=== PATIENT | male | born 1935 | race Caucasian/White ===

== ENCOUNTER 2019-04-06 13:10 | Emergency (ER) | payer MEDICARE, OTHER ==
--- NOTE | 2019-04-06 13:28 | EDM.PDOC ---
ED HPI GENERAL MEDICAL PROBLEM - General Stated Complaint: DIZZY Time Seen by Provider: 04/06/19 13:20 Source of Information: Reports: Patient, Family - History of Present Illness INITIAL COMMENTS - FREE TEXT/NARRATIVE: The patient was sent here from his primary care provider in clinic today due to questionable new diagnosis of atrial flutter and the EKG and possible ST elevation on the EKG patient states he has been dizzy ongoing over the last couple weeks and just feeling goofy over the last week no changes today he denies any chest pain shortness of breath or lightheadedness headache vision changes just feels a little dizzy and goofy so that last most of the day patient has no other complaints at this time Duration: Week(s): Quality: Reports: Other (No pain) 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) (None) - Related Data Allergies Allergy/AdvReac Type Severity Reaction Status Date / Time No Known Drug Allergies Allergy Other Verified 07/19/16 12:36 atorvastatin calcium AdvReac Nausea and Verified 07/19/16 12:36 [From Lipitor] Vomiting codeine AdvReac Nausea and Verified 07/19/16 12:36 Vomiting desvenlafaxine succinate AdvReac Nausea and Verified 07/19/16 12:36 [From Pristiq] Vomiting fenofibrate nanocrystallized AdvReac Nausea and Verified 07/19/16 12:36 [From Tricor] Vomiting fenofibrate,micronized AdvReac Nausea and Verified 07/19/16 12:36 [From Tricor] Vomiting fentanyl [From Duragesic] AdvReac Nausea and Verified 07/19/16 12:36 Vomiting niacin AdvReac Nausea and Verified 07/19/16 12:36 Vomiting simvastatin [From Zocor] AdvReac Nausea and Verified 07/19/16 12:36 Vomiting Home Meds: Home Meds Aspirin [Halfprin] 1 tab PO DAILY 08/27/14 [History] Mirtazapine [Remeron] 30 mg PO BEDTIME 08/27/14 [History] Albuterol [Proventil Neb Soln] 2.5 mg NEB QID PRN 05/16/15 [History] Cholecalciferol (Vitamin D3) [Vitamin D3] 1,000 units PO DAILY 04/06/19 [History ] Cyanocobalamin (Vitamin B-12) [B-12] 500 mcg PO DAILY 04/06/19 [History] Meclizine [Antivert] 25 mg PO Q6H PRN 04/06/19 [History] Metoprolol Tartrate [Lopressor] 12.5 mg PO DAILY 04/06/19 [History] Polyethylene Glycol 3350 [MiraLAX] 17 gm PO DAILY PRN 04/06/19 [History] Rosuvastatin [Crestor] 5 mg PO DAILY 04/06/19 [History] Past Medical History Cardiovascular History: Reports: Bypass, High Cholesterol, Hypertension, [place] Respiratory History: Reports: COPD - Past Surgical History Neurological Surgical History: Reports: Other (See Below) ED ROS GENERAL - Review of Systems Review Of Systems: See Below Constitutional: Denies: Fever, Chills, Malaise, Weakness, Fatigue, Diaphoresis, Weight Loss HEENT: Reports: No Symptoms Respiratory: Reports: No Symptoms. Denies: Shortness of Breath Cardiovascular: Denies: Chest Pain, Blood Pressure Problem, Dyspnea on Exertion , Edema, Lightheadedness, Syncope Endocrine: Reports: No Symptoms GI/Abdominal: Reports: No Symptoms : Reports: No Symptoms Musculoskeletal: Reports: No Symptoms Skin: Reports: No Symptoms Neurological: Reports: Dizziness. Denies: Confusion, Headache, Numbness, Paresthesia, Syncope, Tingling, Trouble Speaking, Difficulty Walking, Weakness Psychiatric: Denies: Confusion Hematologic/Lymphatic: Reports: No Symptoms Immunologic: Reports: No Symptoms ED EXAM, GENERAL - Physical Exam Exam: See Below Exam Limited By: No Limitations General Appearance: Alert, WD/WN, No Apparent Distress Eye Exam: Bilateral Eye: Other (Pupils equal round reactive light accommodation EOMI is intact) Ears: Normal External Exam, Normal Canal, Normal TMs Nose: Normal Inspection, Normal Mucosa Throat/Mouth: Normal Inspection, Normal Lips, Normal Teeth, Normal Gums, Normal Oropharynx, Normal Voice, No Airway Compromise Neck: Normal Inspection, Supple, Non-Tender, Full Range of Motion. No: Carotid Bruit Respiratory/Chest: No Respiratory Distress, Lungs Clear, Other (Very mild faint end expiratory wheezing bilateral upper lobes) Cardiovascular: Normal Peripheral Pulses, No Edema, No JVD, No Murmur, No Rub. No: Regular Rate, Rhythm GI/Abdominal: Normal Bowel Sounds, Soft, Non-Tender, No Organomegaly, No Distention Extremities: Normal Inspection, Normal Range of Motion, Non-Tender Neurological: Alert, Normal Cognition Skin Exam: Warm, Dry, Intact, Normal Color, No Rash (Patient is neurologically intact follows all commands and answers all questions appropriately is no acute distress) EKG INTERPRETATION Rhythm: A-Flutter Course - Vital Signs Text/Narrative:: Vital signs were noted in all normal EKG shows atrial flutter no ST elevation or depression or reciprocal changes could be appreciated at this time Labs ordered CBC BMP troponin EKG chest x-ray patient is currently on metoprolol daily Spoke with cardiology at [facility] Dr. Cabello patient does not need to be transferred with normal troponin and no chest pain have the patient increase his Toprol to 25 mg daily follow up with his primary care provider and cardiology Last Recorded V/S: Last Vital Signs Temp 36.7 C 04/06/19 13:30 Pulse 124 H 04/06/19 13:30 Resp 18 04/06/19 13:30 BP 150/95 H 04/06/19 13:30 Pulse Ox 97 04/06/19 13:30 - Orders/Labs/Meds Orders: Active Orders 24 hr Category Date Time Status EKG Documentation Completion [RC] STAT Care 04/06/19 13:21 Active Labs: Laboratory Tests 04/06/19 04/06/19 Range/Units 13:20 13:20 WBC 7.5 (4.0-10.0) x10^3/uL RBC 4.38 L (4.5-6.0) x10^6/uL Hgb 13.0 L D (14.0-18.0) g/dL Hct 38.3 L (40.0-52.0) % MCV 87.4 (78.0-93.0) fL MCH 29.7 (26.0-32.0) pg MCHC 33.9 (32.0-36.0) g/dL RDW Coeff of Sammie 13.1 (10.0-15.0) % Plt Count 252 (130-400) x10^3/uL Sodium 138 (136-145) mmol/L Potassium 4.6 (3.5-5.1) mmol/L Chloride 102 (98-107) mmol/L Carbon Dioxide 25 (21-32) mmol/L Anion Gap 15.6 (10-20) mmol/L BUN 18 (7-18) mg/dL Creatinine 1.4 H (0.70-1.30) mg/dL Est Cr Clr Drug Dosing 30.24 mL/min Estimated GFR (MDRD) 48 Glucose 97 (74-106) mg/dL Calcium 8.8 (8.5-10.1) mg/dL Troponin I < 0.017 (<=0.056) ng/mL Departure - Departure Time of Disposition: 14:00 Disposition: Home, Self-Care 01 Condition: Good Clinical Impression: Flutter-fibrillation, Dizziness - Discharge Information - Problem List & Annotations (1) Atrial flutter SNOMED Code(s): 7090229 Code(s): I48.92 - UNSPECIFIED ATRIAL FLUTTER Status: Acute (2) Dizziness SNOMED Code(s): 564271435, 398183281 Code(s): R42 - DIZZINESS AND GIDDINESS Status: Acute - My Orders Last 24 Hours: My Active Orders 04/06/19 13:21 EKG Documentation Completion [RC] STAT - Assessment/Plan Last 24 Hours: My Active Orders 04/06/19 13:21 EKG Documentation Completion [RC] STAT Plan: Patient will follow up outpatient cardiology ,call this week for an appointment and to follow with his primary care provider will increase his Toprol 25 mg Patient and were given instructions and signs and symptoms and needs to return to the emergency room with verbal understanding Spoke with patient's primary care provider states decision and treatment sounds great he can call in appointment for and she will seem outpatient clinic
[2019-04-06 13:57] LABS: CHLORIDE,CL 102 mmol/L (98-107); SODIUM,NA 138 mmol/L (136-145)
[2019-04-06 13:58] LABS: ANION GAP 15.6 mmol/L (10-20)
--- NOTE | 2019-04-06 14:00 | CR ---
[id number] RAD/RAD Chest PA or AP 1V EXAM: RAD Chest PA or AP 1V INDICATION: DIZZY. COMPARISON: CT chest with contrast 07/24/2018. DISCUSSION: Median sternotomy wires. Cardiomediastinal silhouette is normal in size and contour. Hazy opacification overlying the right hemithorax is nonspecific. Trace bilateral pleural effusions. No pneumothorax. IMPRESSION: Hazy opacification overlying the right hemithorax is nonspecific. This could be infectious/inflammatory. If continued clinical concern, CT of the chest without contrast could be considered. Caio Nava DO 04/06/19 [id number] Thank you for allowing us to participate in the care of your patient.
[2019-04-06 15:37] VITALS: BP 136/95
== END 2019-04-06 14:55 | disposition home or self-care (01) ==
LOC: VM.ED 13:10
DX: I49.8 Other specified cardiac arrhythmias (principal); I10 Essential (primary) hypertension; E78.00 Pure hypercholesterolemia, unspecified; I25.2 Old myocardial infarction; J44.9 Chronic obstructive pulmonary disease, unspecified; Z79.82 Long term (current) use of aspirin; Z79.899 Other long term (current) drug therapy; Z88.8 Allergy status to other drugs, medicaments and biological substances; Z88.5 Allergy status to narcotic agent
CPT/HCPCS: 71045; 80048; 84484; 85027; 93005; 93010; 99284-GF; 99285-25

== ENCOUNTER 2019-08-04 03:48 | Emergency (ER) | payer MEDICARE, OTHER ==
[2019-08-04] MEDS ORDERED: Dicyclomine 10 MG Cap PO ONE (04:12)
[2019-08-04 04:56] VITALS: BP 151/100; PULSE 100
--- NOTE | 2019-08-04 05:18 | EDM.PDOC ---
ED HPI GENERAL MEDICAL PROBLEM - General Chief Complaint: Abdominal Pain Stated Complaint: Abdominal pain Time Seen by Provider: 08/04/19 05:00 Source of Information: Reports: Patient History Limitations: Reports: No Limitations - History of Present Illness INITIAL COMMENTS - FREE TEXT/NARRATIVE: 84-year-old white male presents with ongoing generalized abdominal plain 2 days constant that he rates it 9 out of 10 crampy sharp pain that just came on. He denies any other complaints at this time states he has been eating fine and drinking fine no bowel movement in 2-3 days no nausea or vomiting no blood in his stool no back pain Duration: Day(s): Location: Reports: Abdomen Quality: Reports: Pressure, Sharp, Stabbing Associated Symptoms: Reports: No Other Symptoms. Denies: Chest Pain, Cough, Diaphoresis, Headaches, Loss of Appetite, Malaise, Nausea/Vomiting, Shortness of Breath, Weakness whole abdomen Pain Score (Numeric/FACES): 5 - Related Data Allergies Allergy/AdvReac Type Severity Reaction Status Date / Time No Known Drug Allergies Allergy Other Verified 08/04/19 04:12 atorvastatin calcium AdvReac Nausea and Verified 08/04/19 04:12 [From Lipitor] Vomiting codeine AdvReac Nausea and Verified 08/04/19 04:12 Vomiting desvenlafaxine succinate AdvReac Nausea and Verified 08/04/19 04:12 [From Pristiq] Vomiting fenofibrate nanocrystallized AdvReac Nausea and Verified 08/04/19 04:12 [From Tricor] Vomiting fenofibrate,micronized AdvReac Nausea and Verified 08/04/19 04:12 [From Tricor] Vomiting fentanyl [From Duragesic] AdvReac Nausea and Verified 08/04/19 04:12 Vomiting niacin AdvReac Nausea and Verified 08/04/19 04:12 Vomiting simvastatin [From Zocor] AdvReac Nausea and Verified 08/04/19 04:12 Vomiting Home Meds: Home Meds Aspirin [Halfprin] 1 tab PO DAILY 08/27/14 [History] Mirtazapine [Remeron] 30 mg PO BEDTIME 08/27/14 [History] Albuterol [Proventil Neb Soln] 2.5 mg NEB QID PRN 05/16/15 [History] Cholecalciferol (Vitamin D3) [Vitamin D3] 1,000 units PO DAILY 04/06/19 [History ] Cyanocobalamin (Vitamin B-12) [B-12] 500 mcg PO DAILY 04/06/19 [History] Meclizine [Antivert] 25 mg PO Q6H PRN 04/06/19 [History] Metoprolol Tartrate [Lopressor] 12.5 mg PO DAILY 04/06/19 [History] Polyethylene Glycol 3350 [MiraLAX] 17 gm PO DAILY PRN 04/06/19 [History] Rosuvastatin [Crestor] 5 mg PO DAILY 04/06/19 [History] Past Medical History Cardiovascular History: Reports: Bypass, High Cholesterol, Hypertension, [place] Respiratory History: Reports: COPD Gastrointestinal History: Reports: GERD Musculoskeletal History: Reports: Arthritis - Past Surgical History Neurological Surgical History: Reports: Other (See Below) ED ROS GENERAL - Review of Systems Review Of Systems: See Below Constitutional: Reports: No Symptoms. Denies: Fever, Chills, Malaise, Weakness , Fatigue, Diaphoresis, Decreased Appetite, Weight Loss, Weight Gain HEENT: Reports: No Symptoms Respiratory: Reports: No Symptoms Cardiovascular: Denies: Chest Pain, Blood Pressure Problem, Dyspnea on Exertion , Lightheadedness, Orthopnea, Palpitations, Syncope Endocrine: Reports: No Symptoms GI/Abdominal: Reports: Abdominal Pain. Denies: Anorexia, Black Stool, Bloody Stool, Constipation, Diarrhea, Decreased Appetite, Difficulty Swallowing, Distension, Flatus, Hematemesis, Hematochezia, Melena, Nausea, Stool Incontinence, Vomiting : Reports: No Symptoms Musculoskeletal: Reports: No Symptoms. Denies: Back Pain Skin: Reports: No Symptoms Neurological: Reports: No Symptoms Psychiatric: Reports: No Symptoms Hematologic/Lymphatic: Reports: No Symptoms Immunologic: Reports: No Symptoms ED EXAM, GI/ABD - Physical Exam Exam: See Below Exam Limited By: No Limitations General Appearance: Alert, WD/WN, No Apparent Distress Eyes: Bilateral: Normal Appearance Ears: Normal Canal, Hearing Grossly Normal Nose: Normal Inspection, Normal Mucosa Throat/Mouth: Normal Inspection, Normal Lips, Normal Teeth, Normal Gums, Normal Oropharynx, Normal Voice, No Airway Compromise, Other (Moist mucous membranes. He has his dentures in ) Neck: Normal Inspection, Supple, Non-Tender, Full Range of Motion Respiratory/Chest: No Respiratory Distress, Lungs Clear, Normal Breath Sounds, No Accessory Muscle Use, Chest Non-Tender Cardiovascular: Normal Peripheral Pulses, Regular Rate, Rhythm, No Edema, No Gallop, No JVD (At time of exam patient states he has no pain 0 out of 10 feels much better after Bentyl), No Murmur, No Rub GI/Abdominal Exam: Normal Bowel Sounds, Soft, Non-Tender, No Organomegaly, No Distention, No Abnormal Bruit, No Mass, Pelvis Stable, Other (Abdomen is soft and nontender no HSM no peritoneal signs. Negative heel slap negative pelvic rock negative CVA tenderness). No: Guarding, Rigid, Rebound, Tender (Abdomen soft and nontender negative HSM no guarding or rebound no iliopsoas and no heel slap no pelvic rock), Abnormal Bowel Sounds Back Exam: Normal Inspection, Full Range of Motion Extremities: Normal Inspection, Normal Range of Motion, Non-Tender, No Pedal Edema, Normal Capillary Refill Neurological: Alert, Oriented, CN II-XII Intact, Normal Cognition, No Motor/ Sensory Deficits Psychiatric: Normal Affect, Normal Mood Skin Exam: Warm, Dry, Intact, Normal Color, No Rash Lymphatic: No Adenopathy Course - Vital Signs Text/Narrative:: She was given 10 mg of Bentyl by mouth which took his pain level from a 9 to a 0 flatplate x-ray was ordered secondary to patient having history of bowel movement 2 days Flatplate and upright positive for constipation moderate amount moderate diffuse gaseous dilatation of the remaining bowels probable ileus patient has no signs or symptoms of ileus he denies any nausea or vomiting at this time. Patient instructed on constipation treatment and need for follow-up or return to emergency room if anything gets worse was given instructions over the phone for treatment and need to return to emergency room in follow primary care provider. She will be given this again when she arrived to pick him up after daylight Patient recheck negative pain willing to go home take stool softeners/laxatives follow-up primary care provider Last Recorded V/S: Last Vital Signs Temp 36.8 C 08/04/19 03:50 Pulse 100 08/04/19 04:53 Resp 16 08/04/19 04:53 BP 151/100 H 08/04/19 04:53 Pulse Ox 96 08/04/19 03:50 - Orders/Labs/Meds Orders: Active Orders 24 hr Category Date Time Status Abdomen 2V AP Flat Upright [CR] Stat Exams 08/04/19 04:50 Taken Meds: Medications Discontinued Medications Generic Name Dose Route Start Last Admin Trade Name Pedro PRN Reason Stop Dose Admin Dicyclomine HCl 10 mg 08/04/19 04:12 08/04/19 04:16 Bentyl PO 08/04/19 04:13 10 mg ONETIME ONE Administration Departure - Departure Time of Disposition: 05:35 Disposition: Home, Self-Care 01 Condition: Good Clinical Impression: Abdominal pain, Constipation - Discharge Information *PRESCRIPTION DRUG MONITORING PROGRAM REVIEWED*: No *COPY OF PRESCRIPTION DRUG MONITORING REPORT IN PATIENT BENNY: No Instructions: Constipation, Adult, [id number], Abdominal Pain, Adult, Easy-to -Read Referrals: PCP,Unobtain [Primary Care Provider] - Additional Instructions: Take Bentyl prescription 1 tablet every 8 hours as needed for pain #11 Drinking plenty of water 4-6-8 glasses a day Take stool softeners Colace 100 mg 1 every 8 hours daily Use MiraLAX daily as prescribed Hold the milk of Magnesia for 3 days For treatment of constipation take 2 stool softeners this morning upon arrival at home and drink 2 glasses of water 1 mixed with MiraLAX as directed then Use magnesium citrate drink one bottle followed by one bottle of water and then use one enema approximately 30-45 minutes after If no bowel movement in 8 hours repeat the above one glass water mixed with MiraLAX with half a bottle of mag citrate followed by 1 bottled water and one enema approximately 30-45 minutes after Follow-up with primary care provider in the next 24 hours or return to emergency room if anything gets worse or changes - Problem List & Annotations (1) Abdominal pain SNOMED Code(s): 14137543 Code(s): R10.9 - UNSPECIFIED ABDOMINAL PAIN Status: Acute Current Visit: Yes (2) Constipation SNOMED Code(s): 85357759 Code(s): K59.00 - CONSTIPATION, UNSPECIFIED Status: Acute Current Visit: Yes - My Orders Last 24 Hours: My Active Orders 08/04/19 04:50 Abdomen 2V AP Flat Upright [CR] Stat - Assessment/Plan Last 24 Hours: My Active Orders 08/04/19 04:50 Abdomen 2V AP Flat Upright [CR] Stat
--- NOTE | 2019-08-04 07:58 | CR ---
[id number] RAD/RAD Abd Flat and Upright 2V EXAM: RAD Abd Flat and Upright 2V INDICATION: ABDOMINAL PAIN. COMPARISON: None. DISCUSSION: Diffuse gaseous distention of both small bowel and colon loops throughout the abdomen/pelvis. Bowel gas pattern is nonspecific, without definitive evidence of obstruction. Ileus is possible. Moderate colonic stool burden. IMPRESSION: As above. Manuel Palumbo MD 08/04/19 0755 Thank you for allowing us to participate in the care of your patient.
== END 2019-08-04 08:05 | disposition home or self-care (01) ==
LOC: VM.ED 03:48
DX: K59.00 Constipation, unspecified (principal); I10 Essential (primary) hypertension; I25.2 Old myocardial infarction; E78.00 Pure hypercholesterolemia, unspecified; M19.90 Unspecified osteoarthritis, unspecified site; Z79.82 Long term (current) use of aspirin; Z79.899 Other long term (current) drug therapy; Z88.8 Allergy status to other drugs, medicaments and biological substances; Z88.5 Allergy status to narcotic agent
CPT/HCPCS: 74019; 99284; A9270

== ENCOUNTER 2019-12-07 15:12 | Inpatient (IN) | payer MEDICARE, OTHER ==
[2019-12-07] MEDS ORDERED: Sodium Chloride 0.9% 10 ML Syringe FLUSH PRN (15:28)
[2019-12-07] MEDS ORDERED: Sodium Chloride 0.9% 1,000 ML IV SCH (15:45)
--- NOTE | 2019-12-07 16:01 | EDM.PDOC ---
ED HPI GENERAL MEDICAL PROBLEM - General Chief Complaint: General Time Seen by Provider: 12/07/19 15:12 Source of Information: Reports: Patient, EMS History Limitations: Reports: No Limitations - History of Present Illness INITIAL COMMENTS - FREE TEXT/NARRATIVE: Pt. presents to ER via EMS. Pt. lives at home alone. His from cancer on . He does all of his own cooking, cleaning, and handles his own medical affairs. He has a home health agency that helps him bathe, but according to his doctor, he is in charge of a majority of his ADLs. He refuses placement in a intermediate, and is unable to afford assisted living. Pt. has a son that lives in the [place] area and has since gone home after the . Pt. has a longstanding history of weight loss, cachexia, increased weakness and general debility. Pt. complains of diffuse abdominal discomfort but states that this has been chronic. He complains of chest pain and shortness of breath. His primary complaint is weakness and fatigue today. He Denies any fever or chills. He states that he has a cough, but feels that this is chronic as well. Denies any skin rashes. No unilateral weakness or paresthesia in his extremities or face. Onset: Today Onset Date: 12/07/19 Duration: Chronic, Constant, Getting Worse Location: Reports: Chest, Abdomen, Generalized Quality: Reports: Ache Severity: Mild Associated Symptoms: Reports: Chest Pain, Malaise, Shortness of Breath, Weakness - Related Data Allergies Allergy/AdvReac Type Severity Reaction Status Date / Time atorvastatin calcium AdvReac Nausea and Verified 12/07/19 15:39 [From Lipitor] Vomiting codeine AdvReac Nausea and Verified 12/07/19 15:39 Vomiting desvenlafaxine succinate AdvReac Nausea and Verified 12/07/19 15:39 [From Pristiq] Vomiting fenofibrate nanocrystallized AdvReac Nausea and Verified 12/07/19 15:39 [From Tricor] Vomiting fenofibrate,micronized AdvReac Nausea and Verified 12/07/19 15:39 [From Tricor] Vomiting fentanyl [From Duragesic] AdvReac Nausea and Verified 12/07/19 15:39 Vomiting niacin AdvReac Nausea and Verified 12/07/19 15:39 Vomiting simvastatin [From Zocor] AdvReac Nausea and Verified 12/07/19 15:39 Vomiting Home Meds: Home Meds Aspirin [Halfprin] 1 tab PO DAILY 08/27/14 [History] Mirtazapine [Remeron] 30 mg PO BEDTIME 08/27/14 [History] Albuterol [Proventil Neb Soln] 2.5 mg NEB QID PRN 05/16/15 [History] Cholecalciferol (Vitamin D3) [Vitamin D3] 1,000 units PO DAILY 04/06/19 [History ] Cyanocobalamin (Vitamin B-12) [B-12] 500 mcg PO DAILY 04/06/19 [History] Meclizine [Antivert] 12.5 mg PO BID 04/06/19 [History] Polyethylene Glycol 3350 [MiraLAX] 17 gm PO BID 04/06/19 [History] Rosuvastatin [Crestor] 5 mg PO BEDTIME 04/06/19 [History] Dicyclomine [Bentyl] 10 mg PO TID PRN 12/07/19 [History] Docusate Sodium [Colace] 100 mg PO DAILY PRN 12/07/19 [History] Magnesium Hydroxide [Milk of Magnesia] 30 ml PO BID 12/07/19 [History] Megestrol [Megace] 40 mg PO DAILY 12/07/19 [History] Metoprolol Succinate [Toprol XL] 37.5 mg PO DAILY 12/07/19 [History] Past Medical History HEENT History: Reports: Hard of Hearing Cardiovascular History: Reports: Bypass, CAD, Heart Failure, High Cholesterol, Hypertension, [place] Respiratory History: Reports: COPD Other Respiratory History: nocturnal hypoxia. multiple lung nodules Gastrointestinal History: Reports: Chronic Constipation, GERD Musculoskeletal History: Reports: Arthritis, RA Psychiatric History: Reports: Anxiety, Depression - Past Surgical History Neurological Surgical History: Reports: Other (See Below) Social & Family History - Tobacco Use Smoking Status *Q: Former Smoker Used Tobacco, but Quit: Yes Month/Year Tobacco Last Used: 03/09 ED ROS GENERAL - Review of Systems Review Of Systems: See Below Constitutional: Reports: Malaise, Weakness, Fatigue, Decreased Appetite, Weight Loss HEENT: Reports: Other (poorly fitting dentures) Respiratory: Reports: No Symptoms Cardiovascular: Reports: No Symptoms Endocrine: Reports: No Symptoms GI/Abdominal: Reports: Abdominal Pain. Denies: Black Stool, Bloody Stool, Hematemesis, Hematochezia, Melena : Reports: No Symptoms Musculoskeletal: Reports: No Symptoms. Denies: Arm Pain, Leg Pain, Joint Pain, Muscle Pain Skin: Reports: Pallor, Dryness Neurological: Reports: No Symptoms Psychiatric: Reports: Mood Lability Hematologic/Lymphatic: Reports: No Symptoms Immunologic: Reports: No Symptoms ED EXAM, GENERAL - Physical Exam Exam: See Below Exam Limited By: No Limitations General Appearance: Mild Distress, Cachetic Eye Exam: Bilateral Eye: EOMI, Normal Fundi, Normal Inspection, PERRL Nose: Normal Inspection, No Blood Throat/Mouth: Normal Inspection, Normal Lips, Normal Oropharynx, No Airway Compromise, Other (poorly fitting dentures) Head: Atraumatic, Normocephalic Neck: Supple, Non-Tender, Limited Range of Motion Respiratory/Chest: No Respiratory Distress, Lungs Clear, Decreased Breath Sounds , Pleural Rub (L lung base) Cardiovascular: Normal Peripheral Pulses, No Edema, No JVD, No Rub, Irregularly Irregular Peripheral Pulses: 4+: Femoral (L) GI/Abdominal: Normal Bowel Sounds, Soft, No Organomegaly, No Distention, No Mass , Pelvis Stable, Tender (Male) Exam: Deferred Rectal (Males) Exam: Deferred Back Exam: Normal Inspection, Decreased Range of Motion Extremities: Normal Inspection, Non-Tender, No Pedal Edema, Normal Capillary Refill, Limited Range of Motion, Other (arthritic appearing hands and feet) Neurological: Alert, CN II-XII Intact, Normal Cognition, Normal Reflexes, No Motor/Sensory Deficits, Confused Psychiatric: Normal Affect, Normal Mood Skin Exam: Warm, Dry, Intact, No Rash, Pallor Course - Vital Signs Last Recorded V/S: Last Vital Signs Temp 36.3 C 12/07/19 18:32 Pulse 89 12/07/19 18:32 Resp 18 12/07/19 18:32 BP 153/53 H 12/07/19 18:32 Pulse Ox 95 12/07/19 18:32 - Orders/Labs/Meds Orders: Active Orders 24 hr Category Date Time Status Patient Status [ADT] Routine ADT 12/07/19 18:40 Ordered EKG Documentation Completion [RC] STAT Care 12/07/19 15:25 Active Piperacillin/Tazobactam [Zosyn] 4.5 gm Med 12/07/19 18:40 Ordered Sodium Chloride 0.9% [Normal Saline] 100 ml IV STAT Sodium Chloride 0.9% [Normal Saline] 1,000 ml Med 12/07/19 15:45 Active IV ASDIRECTED Sodium Chloride 0.9% [Saline Flush] Med 12/07/19 15:28 Active 10 ml FLUSH ASDIRECTED PRN Peripheral IV Insertion Adult [OM.PC] Routine Oth 12/07/19 15:27 Ordered Medication Orders Sodium Chloride (Normal Saline) 1,000 mls @ 200 mls/hr IV ASDIRECTED LEE Last Admin: 12/07/19 15:45 Dose: 200 mls/hr Piperacillin Sod/Tazobactam (Sod 4.5 gm/ Sodium Chloride) 100 mls @ 200 mls/hr IV STAT ONE Stop: 12/07/19 19:09 Sodium Chloride (Saline Flush) 10 ml FLUSH ASDIRECTED PRN PRN Reason: Keep Vein Open Labs: Laboratory Tests 12/07/19 12/07/19 12/07/19 Range/Units 15:50 15:50 15:50 WBC 12.3 H (4.0-10.0) x10^3/uL RBC 4.23 L (4.5-6.0) x10^6/uL Hgb 12.4 L (14.0-18.0) g/dL Hct 37.8 L (40.0-52.0) % MCV 89.4 (78.0-93.0) fL MCH 29.3 (26.0-32.0) pg MCHC 32.8 (32.0-36.0) g/dL RDW Coeff of Sammie 14.4 (10.0-15.0) % Plt Count 196 (130-400) x10^3/uL Neut % (Auto) 75.3 (50.0-80.0) % Lymph % (Auto) 14.8 L (25.0-50.0) % Jenkins % (Auto) 9.1 (2.0-11.0) % Eos % (Auto) 0.6 (0.0-4.0) % Baso % (Auto) 0.2 (0.2-1.2) % PT 12.5 (10.0-12.8) SEC INR 1.1 L (2.0-3.5) Sodium 143 (136-145) mmol/L Potassium 4.3 (3.5-5.1) mmol/L Chloride 106 (98-107) mmol/L Carbon Dioxide 23 (21-32) mmol/L Anion Gap 18.3 (10-20) mmol/L BUN 21 H (7-18) mg/dL Creatinine 1.4 H (0.70-1.30) mg/dL Est Cr Clr Drug Dosing TNP Estimated GFR (MDRD) 48 Glucose 123 H (74-106) mg/dL Lactic Acid (0.4-2.0) mmol/L Calcium 9.6 (8.5-10.1) mg/dL Corrected Calcium 10.24 H (8.5-10.1) mg/dL Phosphorus 3.1 (2.6-4.7) mg/dL Magnesium 2.1 (1.8-2.4) mg/dL Total Bilirubin 0.6 (0.2-1.0) mg/dL AST 14 L (15-37) U/L ALT 11 L (16-63) U/L Alkaline Phosphatase 82 (46-116) U/L Troponin I < 0.017 (<=0.056) ng/mL C-Reactive Protein 4.1 H (<=0.9) mg/dL NT-Pro-B Natriuret Pep 2032 H (<=450) pg/mL Total Protein 8.2 (6.4-8.2) g/dL Albumin 3.2 L (3.4-5.0) g/dL Globulin 5.0 Albumin/Globulin Ratio 0.64 TSH, Ultra Sensitive 4.649 H (0.358-3.74) uIU/mL Urine Color (YELLOW) Urine Appearance (CLEAR) Urine pH (5.0-8.0) Ur Specific [place] Urine Protein (NEGATIVE) mg/dL Urine Glucose (UA) (NEGATIVE) mg/dL Urine Ketones (NEGATIVE) mg/dL Urine Occult Blood (NEGATIVE) Urine Nitrite (NEGATIVE) Urine Bilirubin (NEGATIVE) Urine Urobilinogen (0.2) EU/dL Ur Leukocyte Esterase (NEGATIVE) Urine RBC (NOT SEEN) /HPF Urine WBC (NOT SEEN) /HPF Ur Squamous Epith Cells (NEGATIVE) /HPF Amorphous Sediment Urine Bacteria (NEGATIVE) /HPF Hyaline Casts (NEGATIVE) /HPF Granular Casts (NEGATIVE) /HPF Urine Mucus (NEGATIVE) /LPF 12/07/19 12/07/19 Range/Units 15:50 16:43 WBC (4.0-10.0) x10^3/uL RBC (4.5-6.0) x10^6/uL Hgb (14.0-18.0) g/dL Hct (40.0-52.0) % MCV (78.0-93.0) fL MCH (26.0-32.0) pg MCHC (32.0-36.0) g/dL RDW Coeff of Sammie (10.0-15.0) % Plt Count (130-400) x10^3/uL Neut % (Auto) (50.0-80.0) % Lymph % (Auto) (25.0-50.0) % Jenkins % (Auto) (2.0-11.0) % Eos % (Auto) (0.0-4.0) % Baso % (Auto) (0.2-1.2) % PT (10.0-12.8) SEC INR (2.0-3.5) Sodium (136-145) mmol/L Potassium (3.5-5.1) mmol/L Chloride (98-107) mmol/L Carbon Dioxide (21-32) mmol/L Anion Gap (10-20) mmol/L BUN (7-18) mg/dL Creatinine (0.70-1.30) mg/dL Est Cr Clr Drug Dosing Estimated GFR (MDRD) Glucose (74-106) mg/dL Lactic Acid 3.0 H* (0.4-2.0) mmol/L Calcium (8.5-10.1) mg/dL Corrected Calcium (8.5-10.1) mg/dL Phosphorus (2.6-4.7) mg/dL Magnesium (1.8-2.4) mg/dL Total Bilirubin (0.2-1.0) mg/dL AST (15-37) U/L ALT (16-63) U/L Alkaline Phosphatase (46-116) U/L Troponin I (<=0.056) ng/mL C-Reactive Protein (<=0.9) mg/dL NT-Pro-B Natriuret Pep (<=450) pg/mL Total Protein (6.4-8.2) g/dL Albumin (3.4-5.0) g/dL Globulin Albumin/Globulin Ratio TSH, Ultra Sensitive (0.358-3.74) uIU/mL Urine Color Dark yellow H (YELLOW) Urine Appearance Slightly cloudy H (CLEAR) Urine pH 6.0 (5.0-8.0) Ur Specific [place] 1.025 Urine Protein 30 H (NEGATIVE) mg/dL Urine Glucose (UA) Negative (NEGATIVE) mg/dL Urine Ketones Negative (NEGATIVE) mg/dL Urine Occult Blood Negative (NEGATIVE) Urine Nitrite Negative (NEGATIVE) Urine Bilirubin Small H (NEGATIVE) Urine Urobilinogen 0.2 (0.2) EU/dL Ur Leukocyte Esterase Negative (NEGATIVE) Urine RBC Not seen (NOT SEEN) /HPF Urine WBC 0-5 (NOT SEEN) /HPF Ur Squamous Epith Cells Not seen (NEGATIVE) /HPF Amorphous Sediment Rare Urine Bacteria Rare (NEGATIVE) /HPF Hyaline Casts Few H (NEGATIVE) /HPF Granular Casts Occasional H (NEGATIVE) /HPF Urine Mucus Many H (NEGATIVE) /LPF Meds: Medications Generic Name Dose Route Start Last Admin Trade Name Freq PRN Reason Stop Dose Admin Sodium Chloride 1,000 mls @ 200 mls/hr 12/07/19 15:45 12/07/19 15:45 Normal Saline IV 200 mls/hr ASDIRECTED LEE Administration Piperacillin Sod/Tazobactam 100 mls @ 200 mls/hr 12/07/19 18:40 Sod 4.5 gm/ Sodium Chloride IV 12/07/19 19:09 STAT ONE Sodium Chloride 10 ml 12/07/19 15:28 Saline Flush FLUSH ASDIRECTED PRN Keep Vein Open Discontinued Medications Generic Name Dose Route Start Last Admin Trade Name Freq PRN Reason Stop Dose Admin Iopamidol 100 ml 12/07/19 17:04 12/07/19 17:35 Isovue-300 (61%) IVPUSH 12/07/19 17:05 100 ml ONETIME ONE Administration - Radiology Interpretation Free Text/Narrative:: Chest x-ray is negative CT chest, abdomen and pelvis obtained and showed probable aspiration pneumonia. Departure - Departure Time of Disposition: 18:41 Disposition: Admitted As Inpatient 65 Clinical Impression: Sepsis, Aspiration pneumonia - Discharge Information Forms: ED Department Discharge Sepsis Event Note - Evaluation Sepsis Screening Result: No Definite Risk - Focused Exam Vital Signs: Vital Signs Temp Pulse Resp BP Pulse Ox 12/07/19 18:32 36.3 C 89 18 153/53 H 95 12/07/19 16:46 36.7 C 91 20 134/86 96 12/07/19 15:12 37.0 C 101 H 20 118/79 97 Date Exam was Performed: 12/07/19 Time Exam was Performed: 18:41 - Problem List Review Problem List Initiated/Reviewed/Updated: Yes - My Orders Last 24 Hours: My Active Orders 12/07/19 15:25 EKG Documentation Completion [RC] STAT 12/07/19 15:27 Peripheral IV Insertion Adult [OM.PC] Routine 12/07/19 15:28 Sodium Chloride 0.9% [Saline Flush] 10 ml FLUSH ASDIRECTED PRN 12/07/19 15:45 Sodium Chloride 0.9% [Normal Saline] 1,000 ml IV ASDIRECTED 12/07/19 18:40 Patient Status [ADT] Routine Piperacillin/Tazobactam [Zosyn] 4.5 gm Sodium Chloride 0.9% [Normal Saline] 100 ml IV STAT - Assessment/Plan Last 24 Hours: My Active Orders 12/07/19 15:25 EKG Documentation Completion [RC] STAT 12/07/19 15:27 Peripheral IV Insertion Adult [OM.PC] Routine 12/07/19 15:28 Sodium Chloride 0.9% [Saline Flush] 10 ml FLUSH ASDIRECTED PRN 12/07/19 15:45 Sodium Chloride 0.9% [Normal Saline] 1,000 ml IV ASDIRECTED 12/07/19 18:40 Patient Status [ADT] Routine Piperacillin/Tazobactam [Zosyn] 4.5 gm Sodium Chloride 0.9% [Normal Saline] 100 ml IV STAT Plan: Pt. will be admitted acute, Dr. Prado for Dr. Berger. He is a code 2, DNR/ DNI. Pt. was started on IV zosyn 4.5gm IV in ER. Family was contacted. All questions were answered.
--- NOTE | 2019-12-07 16:10 | CR ---
[id number] RAD/RAD Chest PA or AP 1V EXAM: RAD Chest PA or AP 1V INDICATION: WEAKNESS. COMPARISON: April 06, 2019. DISCUSSION: Median sternotomy wires. Cardiomediastinal silhouette is normal in size and contour. No infiltrate, effusion, pneumothorax, or edema. Chronic blunting of the costophrenic angles. Pulmonary hyperinflation. IMPRESSION: No acute cardiopulmonary abnormality. Caio Nava DO 12/07/19 1608 Thank you for allowing us to participate in the care of your patient.
[2019-12-07 16:29] LABS: CHLORIDE,CL 106 mmol/L (98-107); SODIUM,NA 143 mmol/L (136-145)
[2019-12-07 16:34] LABS: ANION GAP 18.3 mmol/L (10-20)
[2019-12-07] MEDS ORDERED: Iopamidol 612 MG/ML 100 ML Bottle IVPUSH ONE (17:04)
--- NOTE | 2019-12-07 18:35 | CT ---
[id number] CT/CT Chest Abdomen Pelvis W IV EXAM: CT Chest Abdomen Pelvis W IV CLINICAL DATA: ELEVATED WBCs/LACTATE. COMPARISON STUDY: None. FINDINGS: Consolidative and tree-in-bud nodularity predominantly within the right lower lobe dependently. Additionally there is some consolidative nodularity at the left lower lobe dependently. Biapical capping. Findings are superimposed on changes of apical predominant emphysema and chronic bronchitis. Coronary artery atherosclerosis. Heart is normal in size. No pericardial effusion. Thoracic aorta atherosclerosis. Numerous prominent mediastinal and hilar lymph nodes. These are nonspecific in etiology. Abdomen and pelvis: Liver, spleen, gallbladder, pancreas, and adrenal glands are unremarkable. Multiple bilateral renal cysts. Punctate nonobstructing renal calculi bilaterally. No evidence of bowel injury, obstruction, or inflammation. Colonic diverticulosis without evidence of acute diverticulitis. The appendix is visualized and appears normal. Large amount of retained stool within the colon. Urinary bladder is intact. Subtle stranding seen throughout the mesentery. No lymphadenopathy, free fluid, or pneumoperitoneum. Bones and soft tissues: Diffuse bone demineralization. Spondylosis throughout the spine. Multiple areas of nonspecific lucency seen throughout the visualized osseous structures. IMPRESSION: 1. Consolidative nodularity as well as tree-in-bud nodularity seen within the dependent portion of the lower lobes bilaterally. These are likely infectious/inflammatory in nature as can be seen with aspiration. Follow-up imaging after appropriate therapy is recommended to ensure resolution. 2. Large amount of retained stool within the colon. Impaction is not excluded. 3. Subtle stranding seen throughout the mesentery. This is nonspecific. Caio Nava DO 12/07/19 1834 Thank you for allowing us to participate in the care of your patient.
[2019-12-07] MEDS: Piperacillin/Tazobactam 4.5 GM in Sodium Chloride 0.9% 100 ML IV ONE (18:52)
--- NOTE | 2019-12-07 19:08 | PCM.HP.2 ---
H&P History of Present Illness - General Date of Service: 12/07/19 Admit Problem/Dx: Admission Diagnosis/Problem Admission Diagnosis/Problem Aspiration pneumonia - History of Present Illness Initial Comments - Free Text/Narative: Chief complaint: Weak and dizzy History of present illness: He's been chronically feeling more weak. Unclear how much of this is acute. He states his "mom and dad" both recently and is living alone. His closest relative is his son lives in [place]. Had chronic weight loss NOS. Past medical history: Coronary disease, depression, hypertension, former tobacco use, rheumatoid arthritis, chronic back pain with spinal stenosis, emphysema, CHF, peripheral artery disease/carotid stenosis, chronic constipation , mild cognitive disorder, cachexia. Social history, remote smoking history, recently about three weeks ago, sounds like she been providing a fair amount of care recently. Family history is noncontributory Medications: Megace, Colace, Yina lax, Crestor, Bentyl, Antivert, milk of magnesia, Toprol, Remeron, B-12, albuterol, vitamin D, aspirin. Review of systems denies fever denies cough denies any new dyspnea, notes chronic abdominal pain, endorses chronic constipation, denies head or limb pain. Pulse 101 blood pressure 134/86 oxygen saturation 96% on room air temperature 37.0 Celsius Alert oriented pleasant male no acute distress, he has sunken eyes and advanced atrophy of hand consistent with chronic cachexia/wasting. He has rheumatoid deformity of both hands without active synovitis. Faint murmur at apex otherwise regular rate and rhythm with occasional skipped beats. Prior sternotomy scar. Decreased air movement otherwise lungs clear to auscultation. Abdomen is again sunken and cachexic, bowel sounds normal, nontender. Extremities warm well perfused without edema. Generally poorly kempt. Otherwise euthymic. Labs show white count 12.3, hemoglobin 12.4, platelet 196. Creatinine around baseline 1.4, lactic acid 3.0. Troponin is negative, CRP mildly elevated 41 mg/ L, BNP 2000. UA is mostly clear. CT chest abdomen pelvis shows possible aspiration pneumonitis right greater than left. Mild stranding of the mesentery NOS without other focal findings. Constipation throughout. Nonspecific lytic lesions. Assessment plan: #1. Acute on chronic weakness. I'm unclear of patient's exact baseline. He is quite cachexic today. Possible aspiration pneumonitis by CT but he doesn't give much of acute history of this. Start empiric Zosyn. Consult PTOT. Consult social work. Suspect some sort of placement be needed. Continue Megace. #2. Has a history of COPD oxygen currently normal, monitor. #3. History of CAD and CHF, appears stable. Appears euvolemic currently. #4. Chronic anemia hypercalcemia chronic kidney disease elevated protein gap nonspecific lytic lesions by CT. Given severe checks will check SPEP and PSA to look for anything that could be infiltrative. No other gross malignancy by panscan today. #5. Chronic constipation. Was on a high dose of Yina lax at home. We'll continue this and not sure how compliant he is. Titrate as needed. - Related Data Allergies/Adverse Reactions: Allergies Allergy/AdvReac Type Severity Reaction Status Date / Time atorvastatin calcium AdvReac Nausea and Verified 12/07/19 15:39 [From Lipitor] Vomiting codeine AdvReac Nausea and Verified 12/07/19 15:39 Vomiting desvenlafaxine succinate AdvReac Nausea and Verified 12/07/19 15:39 [From Pristiq] Vomiting fenofibrate nanocrystallized AdvReac Nausea and Verified 12/07/19 15:39 [From Tricor] Vomiting fenofibrate,micronized AdvReac Nausea and Verified 12/07/19 15:39 [From Tricor] Vomiting fentanyl [From Duragesic] AdvReac Nausea and Verified 12/07/19 15:39 Vomiting niacin AdvReac Nausea and Verified 12/07/19 15:39 Vomiting simvastatin [From Zocor] AdvReac Nausea and Verified 12/07/19 15:39 Vomiting Home Medications: Home Meds Aspirin [Halfprin] 1 tab PO DAILY 08/27/14 [History] Mirtazapine [Remeron] 30 mg PO BEDTIME 08/27/14 [History] Albuterol [Proventil Neb Soln] 2.5 mg NEB QID PRN 05/16/15 [History] Cholecalciferol (Vitamin D3) [Vitamin D3] 1,000 units PO DAILY 04/06/19 [History ] Cyanocobalamin (Vitamin B-12) [B-12] 500 mcg PO DAILY 04/06/19 [History] Meclizine [Antivert] 12.5 mg PO BID 04/06/19 [History] Polyethylene Glycol 3350 [MiraLAX] 17 gm PO BID 04/06/19 [History] Rosuvastatin [Crestor] 5 mg PO BEDTIME 04/06/19 [History] Dicyclomine [Bentyl] 10 mg PO TID PRN 12/07/19 [History] Docusate Sodium [Colace] 100 mg PO DAILY PRN 12/07/19 [History] Magnesium Hydroxide [Milk of Magnesia] 30 ml PO BID 12/07/19 [History] Megestrol [Megace] 40 mg PO DAILY 12/07/19 [History] Metoprolol Succinate [Toprol XL] 37.5 mg PO DAILY 12/07/19 [History] Past Medical History HEENT History: Reports: Hard of Hearing Cardiovascular History: Reports: Bypass, CAD, Heart Failure, High Cholesterol, Hypertension, MD Respiratory History: Reports: COPD Other Respiratory History: nocturnal hypoxia. multiple lung nodules Gastrointestinal History: Reports: Chronic Constipation, GERD Musculoskeletal History: Reports: Arthritis, RA Psychiatric History: Reports: Anxiety, Depression - Past Surgical History Neurological Surgical History: Reports: Other (See Below) Social & Family History - Tobacco Use Smoking Status *Q: Former Smoker Used Tobacco, but Quit: Yes Month/Year Tobacco Last Used: 03/09 H&P Review of Systems - Review of Systems: Review Of Systems: See Below Exam - Exam Exam: See Below - Vital Signs Vital Signs: Last Vital Signs Temp 36.3 C 12/07/19 18:32 Pulse 89 12/07/19 18:32 Resp 18 12/07/19 18:32 BP 153/53 H 12/07/19 18:32 Pulse Ox 95 12/07/19 18:32 - Patient Data Lab Results Last 24 hrs: Laboratory Results - last 24 hr 12/07/19 12/07/19 12/07/19 Range/Units 15:50 15:50 15:50 WBC 12.3 H (4.0-10.0) x10^3/uL RBC 4.23 L (4.5-6.0) x10^6/uL Hgb 12.4 L (14.0-18.0) g/dL Hct 37.8 L (40.0-52.0) % MCV 89.4 (78.0-93.0) fL MCH 29.3 (26.0-32.0) pg MCHC 32.8 (32.0-36.0) g/dL RDW Coeff of Sammie 14.4 (10.0-15.0) % Plt Count 196 (130-400) x10^3/uL Neut % (Auto) 75.3 (50.0-80.0) % Lymph % (Auto) 14.8 L (25.0-50.0) % Gem % (Auto) 9.1 (2.0-11.0) % Eos % (Auto) 0.6 (0.0-4.0) % Baso % (Auto) 0.2 (0.2-1.2) % PT 12.5 (10.0-12.8) SEC INR 1.1 L (2.0-3.5) Sodium 143 (136-145) mmol/L Potassium 4.3 (3.5-5.1) mmol/L Chloride 106 (98-107) mmol/L Carbon Dioxide 23 (21-32) mmol/L Anion Gap 18.3 (10-20) mmol/L BUN 21 H (7-18) mg/dL Creatinine 1.4 H (0.70-1.30) mg/dL Est Cr Clr Drug Dosing TNP Estimated GFR (MDRD) 48 Glucose 123 H (74-106) mg/dL Lactic Acid (0.4-2.0) mmol/L Calcium 9.6 (8.5-10.1) mg/dL Corrected Calcium 10.24 H (8.5-10.1) mg/dL Phosphorus 3.1 (2.6-4.7) mg/dL Magnesium 2.1 (1.8-2.4) mg/dL Total Bilirubin 0.6 (0.2-1.0) mg/dL AST 14 L (15-37) U/L ALT 11 L (16-63) U/L Alkaline Phosphatase 82 (46-116) U/L Troponin I < 0.017 (<=0.056) ng/mL C-Reactive Protein 4.1 H (<=0.9) mg/dL NT-Pro-B Natriuret Pep 2032 H (<=450) pg/mL Total Protein 8.2 (6.4-8.2) g/dL Albumin 3.2 L (3.4-5.0) g/dL Globulin 5.0 Albumin/Globulin Ratio 0.64 TSH, Ultra Sensitive 4.649 H (0.358-3.74) uIU/mL Urine Color (YELLOW) Urine Appearance (CLEAR) Urine pH (5.0-8.0) Ur Specific [place] Urine Protein (NEGATIVE) mg/dL Urine Glucose (UA) (NEGATIVE) mg/dL Urine Ketones (NEGATIVE) mg/dL Urine Occult Blood (NEGATIVE) Urine Nitrite (NEGATIVE) Urine Bilirubin (NEGATIVE) Urine Urobilinogen (0.2) EU/dL Ur Leukocyte Esterase (NEGATIVE) Urine RBC (NOT SEEN) /HPF Urine WBC (NOT SEEN) /HPF Ur Squamous Epith Cells (NEGATIVE) /HPF Amorphous Sediment Urine Bacteria (NEGATIVE) /HPF Hyaline Casts (NEGATIVE) /HPF Granular Casts (NEGATIVE) /HPF Urine Mucus (NEGATIVE) /LPF 12/07/19 12/07/19 Range/Units 15:50 16:43 WBC (4.0-10.0) x10^3/uL RBC (4.5-6.0) x10^6/uL Hgb (14.0-18.0) g/dL Hct (40.0-52.0) % MCV (78.0-93.0) fL MCH (26.0-32.0) pg MCHC (32.0-36.0) g/dL RDW Coeff of Sammie (10.0-15.0) % Plt Count (130-400) x10^3/uL Neut % (Auto) (50.0-80.0) % Lymph % (Auto) (25.0-50.0) % Gem % (Auto) (2.0-11.0) % Eos % (Auto) (0.0-4.0) % Baso % (Auto) (0.2-1.2) % PT (10.0-12.8) SEC INR (2.0-3.5) Sodium (136-145) mmol/L Potassium (3.5-5.1) mmol/L Chloride (98-107) mmol/L Carbon Dioxide (21-32) mmol/L Anion Gap (10-20) mmol/L BUN (7-18) mg/dL Creatinine (0.70-1.30) mg/dL Est Cr Clr Drug Dosing Estimated GFR (MDRD) Glucose (74-106) mg/dL Lactic Acid 3.0 H* (0.4-2.0) mmol/L Calcium (8.5-10.1) mg/dL Corrected Calcium (8.5-10.1) mg/dL Phosphorus (2.6-4.7) mg/dL Magnesium (1.8-2.4) mg/dL Total Bilirubin (0.2-1.0) mg/dL AST (15-37) U/L ALT (16-63) U/L Alkaline Phosphatase (46-116) U/L Troponin I (<=0.056) ng/mL C-Reactive Protein (<=0.9) mg/dL NT-Pro-B Natriuret Pep (<=450) pg/mL Total Protein (6.4-8.2) g/dL Albumin (3.4-5.0) g/dL Globulin Albumin/Globulin Ratio TSH, Ultra Sensitive (0.358-3.74) uIU/mL Urine Color Dark yellow H (YELLOW) Urine Appearance Slightly cloudy H (CLEAR) Urine pH 6.0 (5.0-8.0) Ur Specific [place] 1.025 Urine Protein 30 H (NEGATIVE) mg/dL Urine Glucose (UA) Negative (NEGATIVE) mg/dL Urine Ketones Negative (NEGATIVE) mg/dL Urine Occult Blood Negative (NEGATIVE) Urine Nitrite Negative (NEGATIVE) Urine Bilirubin Small H (NEGATIVE) Urine Urobilinogen 0.2 (0.2) EU/dL Ur Leukocyte Esterase Negative (NEGATIVE) Urine RBC Not seen (NOT SEEN) /HPF Urine WBC 0-5 (NOT SEEN) /HPF Ur Squamous Epith Cells Not seen (NEGATIVE) /HPF Amorphous Sediment Rare Urine Bacteria Rare (NEGATIVE) /HPF Hyaline Casts Few H (NEGATIVE) /HPF Granular Casts Occasional H (NEGATIVE) /HPF Urine Mucus Many H (NEGATIVE) /LPF Result Diagrams: 12/07/19 15:50 12/07/19 15:50 Sepsis Event Note - Evaluation Sepsis Screening Result: No Definite Risk - Focused Exam Vital Signs: Vital Signs Temp Pulse Resp BP Pulse Ox 12/07/19 18:32 36.3 C 89 18 153/53 H 95 12/07/19 16:46 36.7 C 91 20 134/86 96 12/07/19 15:12 37.0 C 101 H 20 118/79 97 Date Exam was Performed: 12/07/19 Time Exam was Performed: 19:07 Problem List Initiated/Reviewed/Updated: Yes Orders Last 24hrs: Active Orders 24 hr Category Date Time Status Patient Status [ADT] Routine ADT 12/07/19 18:40 Active EKG Documentation Completion [RC] STAT Care 12/07/19 15:25 Active Piperacillin/Tazobactam [Zosyn] 4.5 gm Med 12/07/19 18:40 Active Sodium Chloride 0.9% [Normal Saline] 100 ml IV STAT Sodium Chloride 0.9% [Normal Saline] 1,000 ml Med 12/07/19 15:45 Active IV ASDIRECTED Sodium Chloride 0.9% [Saline Flush] Med 12/07/19 15:28 Active 10 ml FLUSH ASDIRECTED PRN Peripheral IV Insertion Adult [OM.PC] Routine Oth 12/07/19 15:27 Ordered Medication Orders Sodium Chloride (Normal Saline) 1,000 mls @ 200 mls/hr IV ASDIRECTED LEE Last Admin: 12/07/19 15:45 Dose: 200 mls/hr Piperacillin Sod/Tazobactam (Sod 4.5 gm/ Sodium Chloride) 100 mls @ 200 mls/hr IV STAT ONE Stop: 12/07/19 19:09 Last Admin: 12/07/19 18:52 Dose: 200 mls/hr Sodium Chloride (Saline Flush) 10 ml FLUSH ASDIRECTED PRN PRN Reason: Keep Vein Open
[2019-12-07] MEDS ORDERED: Ondansetron 4 MG/2 ML SDV IV PRN (19:09)
[2019-12-07] MEDS ORDERED: Albuterol 0.083% 2.5 MG/3 ML Neb Soln NEB PRN (19:12)
[2019-12-07] MEDS ORDERED: Dicyclomine 10 MG Cap PO PRN (19:12)
[2019-12-07] MEDS ORDERED: Docusate Sodium 100 MG Cap PO PRN (19:12)
[2019-12-07] MEDS ORDERED: Non-Formulary Medication 1 Each (Rosuvastatin [Crestor] 5 MG) PO SCH (20:00)
[2019-12-07] MEDS: Polyethylene Glycol 3350 Powder 17 GM Packet PO SCH (21:09)
[2019-12-07] MEDS: Mirtazapine 30 MG Tab PO SCH (21:09)
[2019-12-07] MEDS: Magnesium Hydroxide 400 MG/5 ML Susp 30 ML Cup PO SCH (21:09)
[2019-12-07] MEDS: Meclizine 25 MG Tab PO SCH (21:12)
[2019-12-08] MEDS: Piperacillin/Tazobactam 3.375 GM in Sodium Chloride 0.9% 100 ML IV SCH ×3 (01:30→17:36)
[2019-12-08 07:20] LABS: ANION GAP 16.3 mmol/L (10-20)
[2019-12-08] MEDS: Megestrol 40 MG Tab PO SCH (07:58)
[2019-12-08] MEDS: Cholecalciferol (Vitamin D3) 25 MCG Tab PO SCH (07:58)
[2019-12-08] MEDS: Metoprolol Succinate 25 MG Tab.ER PO SCH (07:58)
[2019-12-08] MEDS: Meclizine 25 MG Tab PO SCH ×2 (07:58→19:30)
[2019-12-08] MEDS: Aspirin 81 MG Tab.EC PO SCH (07:58)
[2019-12-08] MEDS: Polyethylene Glycol 3350 Powder 17 GM Packet PO SCH ×2 (07:59→19:31)
[2019-12-08] MEDS: Cyanocobalamin (Vitamin B12) 1,000 MCG Tab PO SCH (07:59)
[2019-12-08] MEDS: Magnesium Hydroxide 400 MG/5 ML Susp 30 ML Cup PO SCH ×2 (07:59→19:30)
[2019-12-08] MEDS ORDERED: NS + KCl 20mEq/L 1,000 ML IV SCH (09:00)
[2019-12-08] MEDS: Sertraline 25 MG Tab PO SCH (10:13)
--- NOTE | 2019-12-08 10:30 | PN ---
Progress Note for SANJIV Barrera SHORT Date: 12/08/2019 Room #: VM.214 SUBJECTIVE: The patient was admitted on 12/07/2019 with weakness, failure to thrive. The patient's had on 11/17 and outpatient caregiver services had been lined up for patient. However, he was not doing well with this, was noted to become generally weak. The patient refused placement in a usp. They were not able to afford assisted living. He denies falling. His son lives in the [facility] and had a return home. The patient has many chronic health problems with weight loss, cachexia, weakness, chronic depression, general debility. He has diffuse abdominal comfort. Complains of chest pain, shortness of breath, weakness, and fatigue. When worked up in the emergency room, he was found to have a blood pressure slightly elevated at 153/53, temperature 36.6, pulse 89, respirations 18, saturations were 95. White blood cell count elevated at 12.3, hemoglobin 12.4, 196 platelets. Sodium 143, potassium 4.3, creatinine 1.4, GFR 48, glucose 129. Lactic acid was normal. Magnesium 2.1. LFTs were low normal. CRP was 4.1, proBNP 2032. TSH 4.64. Urinalysis was dark, but had no red blood cells, 0 to 5 white blood cells, negative for leukocyte esterase, negative for nitrites. The patient was given piperacillin IV as well as some IV fluids. CT scan of his chest and abdomen showed probable aspiration pneumonia with some chest x-ray itself was negative. The patient was set up for PT/OT. This morning, the patient states he is still feeling weak. Otherwise, offers no comments really. OBJECTIVE: Vital Signs: His weight is 50.93 kg which is up 0.3 from admission. Temperature is 36.6, pulse 65, blood pressure is 126/61. General: The patient appears very cachectic with very sunken tissue. Skin: Tissue turgor is dry. Heart: Regular rate and rhythm. Lungs: Have diminished breath sounds on bases. Abdomen: Soft. LABORATORY DATA: His lab today shows his white blood cell count improved to 8.3, hemoglobin 11.5. Sodium is 141, potassium 4.3, creatinine 1.2, GFR 58, glucose 98. Lactic acid had been up to 3.0 on admission, was down to 1.0 now. IMPRESSION: 1. Pneumonia, possibly aspiration. 2. Failure to thrive. 3. Dehydration. 4. Rheumatoid arthritis. 5. Chronic obstructive pulmonary disease. 6. Coronary artery disease. 7. Chronic back pain. 8. Slightly abnormal TSH. PLAN: We will have the patient be seen by PT/OT. We will also give an OT cognitive evaluation. We will resume IV fluids on the patient and also get spiritual care consult on the patient. We will start on Zoloft even though he has been on in the past and has not helped as well. We will see if this can help with his mood. I am looking that the patient probably most likely will need to go into a usp care as he is not able to live at home alone to manage his own affairs. GM12/08/2019 09:10:08 MODL: 12/08/2019 09:30:55 /[id number]
[2019-12-08] MEDS ORDERED: Sodium Chloride 0.9% 500 ML IV ONE (11:30)
[2019-12-08] MEDS: Mirtazapine 30 MG Tab PO SCH (19:30)
[2019-12-09] MEDS: Piperacillin/Tazobactam 3.375 GM in Sodium Chloride 0.9% 100 ML IV SCH ×2 (01:34→10:33)
[2019-12-09 07:22] LABS: CHLORIDE,CL 109 mmol/L (98-107); SODIUM,NA 142 mmol/L (136-145)
[2019-12-09 07:23] LABS: ANION GAP 15.5 mmol/L (10-20)
[2019-12-09] MEDS: Metoprolol Succinate 25 MG Tab.ER PO SCH (07:50)
[2019-12-09] MEDS: Polyethylene Glycol 3350 Powder 17 GM Packet PO SCH ×2 (07:50→19:34)
[2019-12-09] MEDS: Sertraline 25 MG Tab PO SCH (07:51)
[2019-12-09] MEDS: Meclizine 25 MG Tab PO SCH ×2 (07:51→19:34)
[2019-12-09] MEDS: Cyanocobalamin (Vitamin B12) 1,000 MCG Tab PO SCH (07:51)
[2019-12-09] MEDS: Cholecalciferol (Vitamin D3) 25 MCG Tab PO SCH (07:51)
[2019-12-09] MEDS: Aspirin 81 MG Tab.EC PO SCH (07:52)
[2019-12-09] MEDS: Acetaminophen 325 MG Tab PO PRN ×2 (07:52→19:33)
[2019-12-09] MEDS: Megestrol 40 MG Tab PO SCH (07:52)
[2019-12-09] MEDS: Magnesium Hydroxide 400 MG/5 ML Susp 30 ML Cup PO SCH ×2 (07:52→19:34)
--- NOTE | 2019-12-09 09:34 | CR ---
[id number] RAD/RAD Chest PA And Lateral EXAM: RAD Chest PA And Lateral CLINICAL DATA: PNEUMONIA COMPARISON: CORRELATION IS MADE WITH YESTERDAY'S EXAM FINDINGS: Minimal infiltrates identified on CAT scan are not obvious on plain films The lungs are obviously hyperaerated The cardiomediastinal contour is stable IMPRESSION: NO CHANGE SINCE YESTERDAY Dk Plaza MD 12/09/19 0933 Thank you for allowing us to participate in the care of your patient.
--- NOTE | 2019-12-09 09:47 | PN ---
Progress Note for SANJIV Barrera SHORT Date: 12/09/2019 Room #: VM.214 SUBJECTIVE: The patient is feeling a little bit more alert today. He comments that it is hard to walk with the IV pole. He is not coughing right now. OBJECTIVE: Vital Signs: His weight is 51.75 kg, which is up 1.1 kg from admission. His pulse rate is 64, temperature is 35.4, blood pressure is 134/62, respiratory rate is 18, saturations are 100%. General: Appears more alert. Skin: Turgor is much improved. Heart: Regular rate and rhythm. Lungs: Diminished breath sounds on bases. Abdomen: Soft, scaphoid, nontender. Extremities: Lower extremities, no edema. LABORATORY AND IMAGING DATA: His white blood cell count is down to 7.5, hemoglobin 11.4, segs 68, 23 lymphs. Sodium 142, potassium 4.5, creatinine has improved to 1.1, GFR greater than 60. ProBNP has gone up to 3500 from 1999 on admission. CRP is 4.0, which has stayed the same. PSA came back at 0.5. TSH was just minimally elevated, it had been normal about 6 months ago, so just most likely it is related to stress. Urinalysis had been normal. Chest x-ray is pending from this morning. IMPRESSION: 1. Community-acquired pneumonia. 2. Failure to thrive. 3. Dehydration. 4. Chronic obstructive pulmonary disease. 5. Rheumatoid arthritis. 6. Chronic depression with anxiety. PLAN: We had started Zoloft yesterday. We will stop his IV fluids today. We will review his x-ray and consider switching him over to oral antibiotics if able. Apparently, his son has met with discharge planning and it is planned that the patient will return to son's home either tomorrow or the next day, and I do feel the patient will be medically stable at that time. Also, to note, the patient was asked about if he has seen a citrus picker in the past and he said years ago. He has had positive rheumatoid factor, negative MELISSA. However, he has many arthritic deformities, I am not certain if it would be beneficial for him to visit a citrus picker again, but may be a possibility, may need to consider prednisone use. GM12/09/2019 08:24:59 MODL: 12/09/2019 09:13:10 /[id number]
[2019-12-09] MEDS: Cefuroxime 250 MG Tab PO SCH (19:33)
[2019-12-09] MEDS: Mirtazapine 30 MG Tab PO SCH (19:34)
[2019-12-10] MEDS: Metoprolol Succinate 25 MG Tab.ER PO SCH (08:03)
[2019-12-10] MEDS: Cholecalciferol (Vitamin D3) 25 MCG Tab PO SCH (08:03)
[2019-12-10] MEDS: Polyethylene Glycol 3350 Powder 17 GM Packet PO SCH (08:03)
[2019-12-10] MEDS: Sertraline 25 MG Tab PO SCH (08:03)
[2019-12-10] MEDS: Megestrol 40 MG Tab PO SCH (08:04)
[2019-12-10] MEDS: Cefuroxime 250 MG Tab PO SCH (08:04)
[2019-12-10] MEDS: Aspirin 81 MG Tab.EC PO SCH (08:04)
[2019-12-10] MEDS: Meclizine 25 MG Tab PO SCH (08:04)
[2019-12-10] MEDS: Cyanocobalamin (Vitamin B12) 1,000 MCG Tab PO SCH (08:04)
[2019-12-10] MEDS: Acetaminophen 325 MG Tab PO PRN (08:04)
[2019-12-10] MEDS: Magnesium Hydroxide 400 MG/5 ML Susp 30 ML Cup PO SCH (08:04)
[2019-12-10 14:03] VITALS: BP 103/60; PULSE 64
--- NOTE | 2019-12-11 02:55 | DISCH ---
DIAGNOSES: 1. Community-acquired pneumonia. 2. Dehydration. 3. Cognitive dysfunction. 4. Failure to thrive. 5. Chronic depression. 6. Rheumatoid arthritis. 7. Chronic back pain. 8. Chronic obstructive pulmonary disease. 9. Hypertension. 10.Coronary artery disease. 11.Hypercholesterolemia. 12.Chronic dizziness. 13.Cachexia. 14.Chronic abdominal pain. SUMMARY OF HISTORY AND PHYSICAL: The patient is an 84-year-old male who presented to the emergency room with weakness, malaise, fatigue. The patient to note was living home alone after his had about 2 weeks ago. Home care services have been arranged, but unclear as to how well they have been working with the patient. The patient had been known to have some mild cognitive dysfunction previously. He just has not been eating well, was somewhat vague about his history and physical exam. He was noted to be quite cachectic, dehydrated. He had lost weight from his previous weight. He had slightly elevated white blood cell count. Chest x-ray was nonspecific. However, CT scan was done of his abdomen, which did show pneumonia with some mild fluid, some stool retention, as well as chronic bronchitis with tree on bud appearance of his lungs. Large amount of stool. Nonspecific stranding throughout mesentery. LABORATORY DATA: On admission shows white blood cell count was slightly elevated at 12.3, creatinine was 1.4, GFR 48, glucose 123, lactic acid 3.0. LFTs normal. Troponin less than 0.017. CRP 4.1, proBNP 2032. TSH slightly elevated at 4.64. Urinalysis was dark, occasional granular casts. No white blood cells or red blood cells seen. SUMMARY OF HOSPITAL COURSE: The patient was placed on IV Zosyn, given IV fluids. He was seen by PT and OT. To note, laboratory data by 12/09/2019 showed that his white blood cell count had improved to 7.5, hemoglobin was 11.4, platelets 239 with 68 neutrophils, 23 lymphs. Sodium was improved to 142, potassium 4.5, creatinine 1.1, GFR greater than 60, BUN 14, glucose was 89. His CRP had stayed at 4.0. ProBNP was slightly elevated at 3500. The patient had a PSA level drawn that was normal at 0.5. The patient had followup chest x-ray, which showed just COPD. Infiltrate was not seen by plain x-ray. To note, he was seen by Occupational Therapy and scored 22/30 for mini-mental status exam, and for his ACL evaluation he scored 3.7/5.8, which is 64% test score. At this level of functioning, the patient should have 24 hours supervision. A full cognitive evaluation should be completed at some point in time. He had issues in all areas of cognition. The patient was switched from IV piperacillin to Ceftin. He did receive some IV fluids for hypotension, but then those were stopped. He was started on Zoloft to help with mood. He has previously tried many other antidepressants in the past and intolerant. MEDICATIONS: At the time of discharge will be aspirin 81 mg 1 pill daily, Remeron 30 mg at bedtime, albuterol nebs q.i.d. p.r.n., Crestor 5 mg at bedtime, MiraLAX 17 g twice a day, meclizine 12.5 mg twice a day, vitamin B12, 500 mcg 1 pill daily, vitamin D 1000 units daily, metoprolol succinate 25 mg a pill and a half daily, Megace 40 mg daily, docusate 100 mg 1 pill daily p.r.n. constipation, Bentyl 10 mg t.i.d. p.r.n. abdominal cramping, milk of magnesia 30 mL b.i.d., Ceftin 250 mg 1 pill twice a day for 6 more days, Zoloft 25 mg half pill daily. This was a new start. PLAN: The patient is do not resuscitate/do not intubate code level status at the time of discharge. The patient will need to establish with a new provider in 2 weeks as he is going to be relocating to the [place] area with his son. The patient will need to have followup of his mood as well as his lung condition and heart failure. To note, the patient has had chronic rheumatoid arthritis and has not been on any sort of antirheumatological agents. May be beneficial to try. GM12/10/2019 08:28:52 MODL: 12/11/2019 02:50:04 /[id number]
== END 2019-12-10 14:30 | disposition home or self-care (01) | DRG 194 ==
LOC: VM.ED 15:12 → VM.MS 18:40
PROVIDERS: ADMIT Family Medicine; ATTEND Family Medicine
DX: A41.9 Sepsis, unspecified organism (principal); J69.0 Pneumonitis due to inhalation of food and vomit; J18.9 Pneumonia, unspecified organism; J44.0 Chronic obstructive pulmonary disease with (acute) lower respiratory infection; I13.0 Hypertensive heart and chronic kidney disease with heart failure and stage 1 through stage 4 chronic kidney disease, or unspecified chronic kidney disease; R64 Cachexia; I11.0 Hypertensive heart disease with heart failure; R09.02 Hypoxemia; Z68.1 Body mass index [BMI] 19.9 or less, adult; E44.1 Mild protein-calorie malnutrition; M19.90 Unspecified osteoarthritis, unspecified site; F32.9 Major depressive disorder, single episode, unspecified; M54.9 Dorsalgia, unspecified; N18.9 Chronic kidney disease, unspecified; R53.1 Weakness; R53.81 Other malaise; G89.29 Other chronic pain; R91.8 Other nonspecific abnormal finding of lung field; I73.9 Peripheral vascular disease, unspecified; Z95.1 Presence of aortocoronary bypass graft; I50.9 Heart failure, unspecified; I25.10 Atherosclerotic heart disease of native coronary artery without angina pectoris; R63.4 Abnormal weight loss; F09 Unspecified mental disorder due to known physiological condition; M06.9 Rheumatoid arthritis, unspecified; K59.09 Other constipation; H91.90 Unspecified hearing loss, unspecified ear; E78.00 Pure hypercholesterolemia, unspecified; K21.9 Gastro-esophageal reflux disease without esophagitis; F41.9 Anxiety disorder, unspecified; Z66 Do not resuscitate; E86.0 Dehydration; R62.7 Adult failure to thrive; Z87.891 Personal history of nicotine dependence; I25.2 Old myocardial infarction; Z79.82 Long term (current) use of aspirin; Z79.51 Long term (current) use of inhaled steroids; Z79.899 Other long term (current) drug therapy; Z88.5 Allergy status to narcotic agent; Z88.8 Allergy status to other drugs, medicaments and biological substances
CPT/HCPCS: 36415; 71045; 71260; 74177; 80053; 81001; 83605; 83735; 83880; 84100; 84443; 84484; 85025; 85610; 86140; 93005; 99284; J7030; Q9967; 71046; 80048; 84153; 84155; 84165; 85007; 85027; 96360; 96361; 97116-GP; 97129-GO; 97161-GP; 97165-GO; 97535-GO; 99285-25; A9270-GY; J2543; J3480; J7050